=== PATIENT | male | born 1960 | race Caucasian/White ===

== ENCOUNTER 2022-08-17 10:16 | Emergency (ER) | payer BC | END 2022-08-17 13:10 | disposition home or self-care (01) | LOC: CSHERS 10:16 | DX: S80.12XA Contusion of left lower leg, initial encounter (principal); I10 Essential (primary) hypertension; E11.9 Type 2 diabetes mellitus without complications; F17.200 Nicotine dependence, unspecified, uncomplicated; W11.XXXA Fall on and from ladder, initial encounter ==

== ENCOUNTER 2022-12-16 11:57 | Day surgery (SDC) | payer BC ==
[2022-12-14 15:57] VITALS: BMI 34.7
[2022-12-16] MEDS ORDERED: Dexamethasone 4 mg/ml Vial ONE (12:24)
[2022-12-16] MEDS ORDERED: Lidocaine 2% PF 5 ML VIAL ONE (12:24)
[2022-12-16] MEDS ORDERED: Ondansetron PF 4 MG/2 ML Vial ONE (12:24)
[2022-12-16] MEDS ORDERED: PROPOFOL 20 ML ONE (12:25)
[2022-12-16] MEDS ORDERED: Midazolam HCl 2 mg/2 ml Vial ONE (12:25)
[2022-12-16 12:53] LABS: Anion Gap 17 mmol/L (10-20); BUN (Urea Nitrogen) 16 mg/dL (8.4-25.7); Calc. Creatinine Clearance 158 mL/min (70-130); Carbon Dioxide 22 mmol/L (22-29); Chloride 104 mmol/L (98-107); Estimated GFR 99; Glucose 163 mg/dL (70-105); Potassium 4.3 mmol/L (3.5-5.1); Sodium 139 mmol/L (136-145)
[2022-12-16] MEDS ORDERED: Fentanyl 250 MCG/5 ML VIAL ONE (14:10)
[2022-12-16] MEDS ORDERED: Bupivacaine 0.5% 10 ML VIAL ONE (14:27)
== END 2022-12-16 16:00 | disposition home or self-care (01) ==
LOC: CSHSDC 11:57
PROVIDERS: ATTEND Podiatrist Foot & Ankle Surgery
PROC: 0Y6U0Z3 Detachment at Left 3rd Toe, Low, Open Approach (ICD-10-PCS; principal; 2022-12-16)
DX: M86.172 Other acute osteomyelitis, left ankle and foot (principal); E11.40 Type 2 diabetes mellitus with diabetic neuropathy, unspecified; I10 Essential (primary) hypertension; E78.2 Mixed hyperlipidemia; I96 Gangrene, not elsewhere classified; E66.01 Morbid (severe) obesity due to excess calories; Z68.34 Body mass index [BMI] 34.0-34.9, adult; Z88.1 Allergy status to other antibiotic agents
CPT/HCPCS: 36415; 80048; 88305; 88311; 93005; 93010; J1100; J2001; J2250; J2405; J2704; J3010; J3490